=== PATIENT | female | born 1945 | race Caucasian/White ===

== ENCOUNTER 2017-10-16 16:40 | Inpatient (IN) | payer OTHER ==
[~2017-10-16] VITALS: Ht 167.6 cm; Wt 130.7 kg
--- NOTE | ~2017-10-16 | WRIGHTHP ---
[place], [place] PATIENT HISTORY AND PHYSICAL EXAM [id number] UN[facility] #: [id number] ROOM: 310 DOCTOR: TRISTON EGAN MD BIRTHDATE: [birth year] DOS: 10/17/2017 CHIEF COMPLAINT: "I really am not suicidal, but I guess I need to be here." HISTORY OF PRESENT ILLNESS: This is a 72-year-old white female who is a resident of [facility] in [place], [place]. The patient was sent here on a voluntary basis because she stated she is depressed and needs help. The center stated that she was suicidal and was voicing an active plan to kill herself. Upon admission to the [facility], the patient has vehemently denied that she is suicidal, but does admit that she is feeling very frustrated with the care she is receiving at [facility]. She does report a lengthy psychiatric history and most recently has been followed by Dr. Brewer for bipolar disorder. Her most recent medication list includes Celexa, trazodone and Valium. 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 She also notes that she has some pain issues, but can put up with it. On a positive note, she is ambulating better. She was admitted to the [facility] in the first place following a fall at home where she laid on the ground for approximately 4 days before somebody found her. When they did find her, she had significant rhabdomyolysis and was weakened and required active PT and OT in order to gain her strength. She is now admitted to the [facility] to rule out organic factors, to stabilize on medication and to find the least restrictive environment post-discharge. PAST MEDICAL HISTORY: Remarkable for hypertension, gout, depression, bipolar type 2 and obesity. The patient does not drink alcohol. She is a former smoker in the distant past. She denies any illicit drug use. STRENGTHS: The patient is ambulatory, has good support system and is motivated for change. ALLERGIES: To FISH and OTHER SEAFOOD. MENTAL STATUS: The patient is alert and oriented. She does report that she is depressed, but denies convincingly suicidal thoughts, self-injurious thoughts or any homicidal thoughts. She does endorse multiple neurovegetative symptoms. There is no significant hypomania or bradford and there are no overt auditory or visual hallucinations. No delusions, no paranoias present. For the most part, her memory is intact. DIAGNOSIS: Bipolar type 2. PLAN: I have convinced her to consider a switch from her Celexa to Trintellix 10 mg in the morning. She prefers Valium p.r.n. to Ativan p.r.n. and I will go ahead and order Valium 5 mg q. 8 hours p.r.n. as long as she does not over utilize it. I will discontinue the Latuda as I do not see the presence of any hypomania or bradford at this time. Routine screening examination showed her to have both a low vitamin D level at 15.1 and a low folate level at 3.81. I will go ahead and treat with multivitamins and minerals to see if this is an adequate replacement for her. We will engage her in individual and romo milieu activity, [place], [place] PATIENT HISTORY AND PHYSICAL EXAM NAME: LA FLORIAN UNIT #: [id number] ROOM: 310 DOCTOR: TRISTON EGAN MD BIRTHDATE: [birth year] obtain an independent OT and PT evaluation to determine if it is safe for her to return home with assistance, discharge her then to the least restrictive environment when psychiatrically stable. TRISTON EGAN MD CM:HISPHYS:PATIENT HISTORY AND PHYSICAL EXAMINATION [id number] TRISTON EGAN MD 10/17/17 1322 interface
--- NOTE | ~2017-10-16 | PR ---
[place], [place] PROGRESS NOTE NAME: LA FLORIAN [facility] #: [id number] UNIT #: [id number] ROOM: 310 DOCTOR: TRISTON EGAN MD BIRTHDATE: [birth year] DOS: 10/22/2017 CHIEF COMPLAINT: "I have taken the medicine. I have done everything I can and I have agreed to go back to that usp, so I can build my strength up." SUMMARY OF THE VISIT: The patient was interviewed as she sat in the dining area. She had already completed her breakfast. She did engage readily in conversation with me and apologized for her behavior on Sunday. She did report that through the weekend, she was compliant with all aspects of care and did reconsider the possibility of returning to a less than 30-day rehab stint to build up her strength. She convincingly denies any side effects from the medication and does report positive effects from the medicines themselves. She reports good sleep and appetite. MENTAL STATUS: She is alert and oriented with some mild time gaps, but otherwise she is fully intact. Mood does seem to be strongly trending towards euthymia. Affect is much more appropriate. There is no symptom of hypomania or bradford. There is no gross psychotic symptomatology. Short-term memory, intermediate memory and long-term memory for the most part are intact. PLAN: I will maintain her current psychotropic regimen. We will explore possible placement options as [facility] does not feel that they can adequately meet her needs. We will discharge then when a bed becomes available. TRISTON EGAN MD CM:PNTRANS [id number] TRISTON EGAN MD 10/23/17 0343 interface
--- NOTE | ~2017-10-16 | PR ---
[place], [place] PROGRESS NOTE NAME: LA FLORIAN [facility] #: [id number] UNIT #: [id number] ROOM: 310 DOCTOR: TRISTON EGAN MD BIRTHDATE: [birth year] DOS: 10/18/2017 CHIEF COMPLAINT: "I want to go home, I passed my physical therapy evaluation." SUMMARY OF THE VISIT: The patient was interviewed in the group therapy room. She had requested to speak to myself and the medical student rounding with me in private. She was rather help rejecting and negative. She did report that she did not take her medicine yesterday because she did not want to risk having a side effect from it and since I would not necessarily be her outpatient physician, did not want to risk that another doctor would be able to monitor her benefits and side effects well. She did report that she had her physical therapy evaluation and per her report passed it, so she was ready to be discharged. In reality, the PT, OT report suggests that it would be best for her to return to a snf facility for further rehabilitation. The patient is somewhat negative and very staff splitting. She was very upset that she did not get her trazodone when she wanted it, instead she got at 15 to 30 minutes later and was therefore very upset that her needs were not being met and she tended to catastrophize this in terms that we much like [facility] did not care for her. After we did have treatment team, the nurse in charge did go and confront her regarding the PT, OT report and that the patient did then agree to stay longer, so that she can potentially get placed into a SNF, so that her physical therapy needs could be more adequately met. She also at that time agreed to become compliant with the Trintellix which she had refused yesterday. MENTAL STATUS: She remains alert and oriented with some time gaps. Mood does seem to be extremely depressed and she is very irritable and on edge. How much of this is because of AXIS I issues versus an underlying personality disorder remains unknown at this time. There are no gross psychotic symptoms at this point and no bradford in its true sense. Memory has some minor gaps, but otherwise she is intact. PLAN: I will maintain her current psychotropic regimen. If she does comply with the Trintellix my plan is to increase it from 10 to 20 mg a day to maximize potential benefit. We will utilize trazodone as needed for sleep aid. We will engage her in individual and romo milieu activity. We will attempt to get her placed into [facility] where I will then be able to follow her upon her return. [place], [place] PROGRESS NOTE NAME: LA FLORIAN UNIT #: [id number] ROOM: 310 DOCTOR: TRISTON EGAN MD BIRTHDATE: [birth year] TRISTON EGAN MD CM:PNTRANS [id number] TRISTON EGAN MD 11/14/17 1107 interface
--- NOTE | ~2017-10-16 | PR ---
[place], [place] PROGRESS NOTE [id number] UNIT #: [id number] ROOM: 310 DOCTOR: JUAN GARIBAY MD BIRTHDATE: [birth year] DOS: 10/21/2017 SUBJECTIVE: Patient seen and spoke with the staff. Per staff, patient is doing well, taking her medication. No behavior problems or issues. She slept last night after getting the Valium. Patient was pleasant and cooperative. She was in the day area. She reports doing "okay." She said that her mood is better and she slept well last night. She did not express any problems or concerns. MENTAL STATUS EXAMINATION: Pleasant and cooperative. Described her mood as "better." Affect brighter. Thought process goal directed. No flight of ideas, loosening of association. She denied auditory or visual hallucination. No delusion or paranoia noted. She denied suicidal ideation, intent or plan. She also denied homicidal ideation, intent or plan. PLAN: 1. Continue current medication and care. 2. Continue redirection. 3. Supportive care. 4. Final medication management and discharge plan by the regular team. JUAN GARIBAY MD CM:PNTRANS [id number] [phone] JUAN GARIBAY MD 10/22/17 1524 interface
--- NOTE | ~2017-10-16 | PR ---
[place], [place] PROGRESS NOTE [id number] UNIT #: [id number] ROOM: 310 DOCTOR: JUAN GARIBAY MD BIRTHDATE: [birth year] DOS: 10/20/2017 PSYCHIATRIC PROGRESS NOTE SUBJECTIVE: The patient seen and spoke with the staff. Per staff, the patient is doing better, taking her medication regularly. No behavior problems or issues, slept well last night. The patient was pleasant and cooperative. She was in the day area. She reports doing good. She said that she feels better. Denied any side effect from the medication. Did not express any other problems or concerns. MENTAL STATUS EXAMINATION: Pleasant, cooperative. Described her mood as "better." Affect, mood congruent. Thought process goal directed. No flight of ideas, loosening of association. She denied auditory or visual hallucination. No delusion or paranoia noted. She denied any suicidal ideation, intent or plan. She also denied any homicidal ideation, intent or plan. PLAN: 1. Continue current medications and care. 2. Continue redirection. 3. Supportive care. JUAN GARIBAY MD CM:PNTRANS 24 [phone] JUAN GARIBAY MD 10/21/17315 interface
--- NOTE | ~2017-10-16 | PR ---
[place], [place] PROGRESS NOTE [id number] UNIT #: [id number] ROOM: 310 DOCTOR: TRISTON EGAN MD BIRTHDATE: [birth year] DOS: 10/19/2017 CHIEF COMPLAINT: "I'm not taking my medicine, I'm not cooperating, I want to go home." SUMMARY OF THE VISIT: Patient was interviewed with nursing present. She reported to me that she does not want to cooperate anymore and that she wanted to fire me as her psychiatrist stating that she does not agree with me about her staying here and that she can go home and can take care of herself. When confronted with the report given to us by PT and OT that she does require SNF placement, she shrugged her shoulders and stated that she was fine on her own. I did discuss with her my concerns that she needed a higher level of care than what she expected and that she would be here until we determine what the least restrictive environment would be. The patient angrily stated that she did not want to cooperate any further. I did tell her that this was totally her call as far as how much benefit she wanted to get from her continued stay here. MENTAL STATUS: She is alert and oriented with time gaps. Mood does seem to be rather labile. Affect at times is inappropriate. She is rather short and terse, very impulsive in her thinking. Short term memory has some gaps. PLAN: Given the fact that the patient has verbalized in the past suicidal thoughts and she is making irrational decisions regarding her ability to care for her own needs, I have put the patient on a 72-hour hold to further assess her ability to care for herself and to further assess suicidality. I have discussed this with the patient and made her aware of this. I will go ahead from a medication standpoint and change her trazodone to 50 mg at bedtime as opposed to p.r.n. She reports to me that this is how she took it at home. I will continue to offer her the Trintellix in the morning. Continue to attempt to engage her in individual and romo milieu activity. The treatment team will re-approach her later to discuss with her possible options other than home and see if we can reason with her and then make referrals to the appropriate long-term care facility. [place], [place] PROGRESS NOTE NAME: LA FLORIAN UNIT #: [id number] ROOM: 310 DOCTOR: TRISTON EGAN MD BIRTHDATE: [birth year] TRISTON EGAN MD CM:PNKAMILLE [id number] TRISTON EGAN MD 10/20/17 0105 interface
--- NOTE | ~2017-10-16 | DS ---
[place], [place] DISCHARGE SUMMARY NAME: LA FLORIAN [facility] #: [id number] UNIT #: [id number] ROOM: 310 DOCTOR: TRISTON EGAN MD BIRTHDATE: [birth year] DOS: 10/23/2017 CHIEF COMPLAINT: "I am really not suicidal, but I guess I need to be here." HISTORY OF PRESENT ILLNESS: This is a 72-year-old white female who is a resident of [facility] in [place], [place]. The patient was sent here on a voluntary basis because she stated that she is depressed and needs help. The [facility] had stated that the patient had repeatedly voiced suicidal statements with an active plan to kill herself. Upon admission to the behavioral health care unit, the patient had consistently and vehemently denied that she is suicidal, but did admit to being frustrated with the care she was receiving at [facility] and did endorse multiple neurovegetative symptoms. The patient does also endorse a lengthy psychiatric history and most recently was being followed by Dr. Brewer for bipolar disorder and had been most recently prescribed Celexa, trazodone and Valium. 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 She also has significant pain issues and has been trying to rehab to be able to return home. She is admitted now to rule out organic factors, to rule out lethality, to stabilize on medication and to determine the least restrictive environment to which she could be discharged to. PAST MEDICAL HISTORY: Remarkable for hypertension, gout, bipolar disorder, obesity. SOCIAL HISTORY: The patient does not drink alcohol. She is a former smoker in the very distant past and she has no illicit drug use. STRENGTHS: She is ambulatory, has a good support system and is motivated for change. ALLERGIES: She lists allergies to use SEAFOOD and FISH. SUMMARY OF THE HOSPITAL COURSE: The patient was admitted to the unit where I initially had discontinued her Celexa in lieu of Trintellix 10 mg in the morning. I did attempt to add Latuda to this in order to augment the effectiveness of the antidepressant; however, she did not want the Latuda and requested instead trazodone at bedtime and Valium as her p.r.n. The patient was somewhat confrontational early on and did not feel that she needed to be here and at one point voiced a plan that she was going to leave the hospital to return home, this despite PT and OT evaluating her and feeling that she was not capable of maintaining independent living and needed further rehabilitation. When this occurred, I did put the patient on an involuntary 72-hour hold, during which time, the patient did recant her desire and did agree to go back into a rehab facility to gain her strength. The patient did agree to take the Trintellix and it was maintained at 10 mg a day. Trazodone was utilized at 50 mg p.r.n. at bedtime and the Valium was ordered as a p.r.n., which she barely used. The patient had improved sufficiently with this combination to be able to return to [facility] where I will be able to follow her when she is admitted there. [place], [place] DISCHARGE [facility]: [id number] UNIT #: [id number] ROOM: 310 DOCTOR: TRISTON EGAN MD BIRTHDATE: [birth year] MENTAL STATUS AT DISCHARGE: The patient is alert and oriented with some minor gaps. Mood does seem to be strongly trending towards euthymia and the patient was even able to joke and laugh with me. She was spontaneous at times. There is no symptom suggestive of bradford or hypomania, likewise, there are no gross psychotic symptoms noted. Short term, intermediate, and long-term memory for the most part were fully intact. FINAL DIAGNOSIS: Bipolar type 2, per history. DISPOSITION: The patient is being admitted to [facility] for further rehabilitation and stabilization. Her prescriptions have been printed and will be sent with her. She is medically and psychiatrically stable. Her biopsychosocial needs are going to be adequately met by the facility and by myself when she is admitted there. TRISTON EGAN MD CM:DISCHARG [id number] TRISTON EGAN MD 10/23/17 1035 interface
[2017-10-16] MEDS ORDERED: CELEXA40 MG PO (17:16)
[2017-10-16] MEDS ORDERED: DOCUSATE SODIU100 M3 PO (17:17)
[2017-10-16] MEDS ORDERED: ZESTRIL20 MG PO (17:19)
[2017-10-16] MEDS ORDERED: Lovenox40 MG/0.4 PO (17:22)
[2017-10-16] MEDS ORDERED: NORVASC5 MG PO (17:23)
[2017-10-16] MEDS ORDERED: TRAZODONE100 MG PO (17:24)
[2017-10-16] MEDS ORDERED: TRAMADOL HCL50 MG PO (17:26)
[2017-10-16] MEDS ORDERED: VALIUM10 MG PO (17:27)
[2017-10-16] MEDS ORDERED: Nystatin Cream15 GM T (17:51)
[2017-10-16 18:37] VITALS: BP 158/83
[2017-10-16 20:00] VITALS: BP 158/83
[2017-10-17 06:37] LABS: ALBUMIN 2.9 gm/dl (3.1-4.5); ALKALINE PHOSPHATASE 50 U/L (45-117); BASO % 0.4 % (0.0-1.0); BUN 13 mg/dl (7-24); CHLORIDE 103 mmol/L (98-107); CHOLESTEROL 149 mg/dL (<200); CREATININE 0.93 mg/dL (0.55-1.02); EOS # 0.1 10*3/uL (0.0-0.4); EOS % 2.2 % (1.0-4.0); HDL CHOLESTEROL 37 mg/dl (40-60); HEMOGLOBIN 11.9 g/dl (12.0-16.0); LDL CHOLESTEROL 87 mg/dL (9-159); LYMPH # 1.2 10*3/uL (1.3-4.4); LYMPH % 21.7 % (27.0-41.0); MEAN CELL VOLUME 95.2 fl (81.0-99.0); MEAN CORPUSCULAR HGB 31.5 pg (27.0-31.0); MEAN CORPUSCULAR HGB CONC 33.1 g/dl (33.0-37.0); MEAN PLATELET VOLUME 10.5 fl (9.6-12.3); MONO # 0.4 10*3/uL (0.1-1.0); MONO % 6.4 % (3.0-9.0); NEUT # 3.8 10*3/uL (2.3-7.9); NEUT % 69.1 % (47.0-73.0); PLATELET COUNT AUTOMATED 234 10*3/uL (130-400); POTASSIUM 3.5 mmol/L (3.5-5.1); RED BLOOD COUNT 3.78 10*6/uL (4.10-5.10); RED CELL DISTRI WIDTH 13.8 % (0-14.5); SGOT/AST 17 IU/L (3-35); SGPT/ALT 23 U/L (12-78); SODIUM 138 mmol/L (136-145); TOTAL PROTEIN 6.6 gm/dL (6.4-8.2); TRIGLYCERIDES 124 mg/dl (<150); VLDL CHOLESTEROL 25 mg/dL (6-40); WHITE BLOOD COUNT 5.5 10*3/uL (4.8-10.8)
[2017-10-17 07:11] LABS: VITAMIN D, 25-HYDROXY 15.1 ng/mL (30-100)
[2017-10-17 08:25] VITALS: BP 143/78
[2017-10-17 17:02] LABS: BILIRUBIN NEGATIVE (NEGATIVE); BLOOD TRACE-INTACT (NEGATIVE); CLARITY SL CLOUDY (CLEAR); COLOR YELLOW (YELLOW); GLUCOSE NEGATIVE (NEGATIVE); KETONE TRACE (NEGATIVE); LEUKO ESTERASE 1+ (NEGATIVE); NITRITE NEGATIVE (NEGATIVE); PH 5.5 (5.0-9.0); SPECIFIC GRAVITY 1.025 (1.005-1.030); UROBILINOGEN 0.2 E.U./dl (0.2-1.0)
[2017-10-17 17:27] LABS: BACTERIA 2+; MUCOUS TRACE; RBC 0-2 rbc/hpf (0-2)
[2017-10-17 21:42] VITALS: BP 133/69
[2017-10-18 07:55] VITALS: BP 148/64
[2017-10-18 08:11] LABS: CREATINE KINASE, TOTAL, SERUM 48 U/L (24-173)
[2017-10-18 16:07] LABS: CK-BB 0 % (0); CK-MB 0 % (0-3); CK-MM 100 % (97-100); MACRO TYPE 1 0 % (Not Observed); MACRO TYPE 2 0 % (Not Observed)
[2017-10-18 20:29] VITALS: BP 130/75
[2017-10-19 08:40] VITALS: BP 154/71
[2017-10-19 19:19] VITALS: BP 127/46
[2017-10-19 19:39] VITALS: BP 127/66
[2017-10-20 07:33] VITALS: BP 141/54
[2017-10-20 20:10] VITALS: BP 137/68
[2017-10-21 07:40] VITALS: BP 154/82
[2017-10-21 20:28] VITALS: BP 128/73
[2017-10-22 08:10] VITALS: BP 120/71
[2017-10-22 20:06] VITALS: BP 108/69
[2017-10-23 07:58] VITALS: BP 147/58
[2017-10-23] MEDS ORDERED: TRAZODONE50 MG PO (09:26)
[2017-10-23] MEDS ORDERED: BRIN10TA PO (09:26)
[2017-10-23] MEDS ORDERED: IBUPROFEN400 MG PO (12:15)
== END 2017-10-23 14:20 | disposition other institution (70) | DRG 885 ==
LOC: 3N 16:40
PROVIDERS: Psychiatry & Neurology Psychiatry
DX: F31.81 Bipolar II disorder (principal); E66.01 Morbid (severe) obesity due to excess calories; R45.851 Suicidal ideations; Z68.42 Body mass index [BMI] 45.0-49.9, adult; I10 Essential (primary) hypertension; F41.9 Anxiety disorder, unspecified; E55.9 Vitamin D deficiency, unspecified; E53.8 Deficiency of other specified B group vitamins; M1A.9XX0 Chronic gout, unspecified, without tophus (tophi); F31.30 Bipolar disorder, current episode depressed, mild or moderate severity, unspecified; Z87.891 Personal history of nicotine dependence; Z91.013 Allergy to seafood; Z90.89 Acquired absence of other organs; Z90.49 Acquired absence of other specified parts of digestive tract; Z90.710 Acquired absence of both cervix and uterus; Z80.3 Family history of malignant neoplasm of breast; Z84.89 Family history of other specified conditions; Z79.899 Other long term (current) drug therapy; Z87.39 Personal history of other diseases of the musculoskeletal system and connective tissue